=== PATIENT | male | born 1995 | race Hispanic/Latino ===

== ENCOUNTER 2020-08-27 09:01 | Emergency (ER) | payer OTHER, SELFPAY ==
[2020-08-27] MEDS ORDERED: METOCLOPRAMIDE 10 MG/2mL INJ ONE (09:37)
[2020-08-27] MEDS ORDERED: NA CHLORIDE 0.9% 1,000 ML ONE (09:37)
[2020-08-27] MEDS ORDERED: DIPHENHYDRAMINE 50 MG/ML VIAL ONE (09:37)
[2020-08-27] MEDS ORDERED: KETOROLAC 30 MG/ML INJ ONE (09:37)
--- NOTE | 2020-08-27 09:41 | RAD REPORT ---
EXAM DESCRIPTION: CT - Head Brain Wo Cont - 08/27/2020 9:34 am CLINICAL HISTORY: HEADACHE Intermittent headache COMPARISON: No comparisons TECHNIQUE: All CT scans are performed using dose optimization technique as appropriate and may inclu de automated exposure control or mA/KV adjustment according to patient size. FINDINGS: No intracranial hemorrhage, hydrocephalus or extra-axial fluid collection.No areas of brai n edema or evidence of midline shift. The paranasal sinuses and mastoids are clear. The calvarium is intact. IMPRESSION: No acute intracranial abnormality.
[2020-08-27 09:54] LABS: Absolute Lymphocytes (CBC) 1.9 K/uL (0.7-4.9); Basophils % 0.4 % (0-1.3); Hematocrit 45.2 % (39.6-49.0); Lymphocytes % 16.6 % (15.3-44.8); MPV 9.3 fL (7.6-11.3); RBC Red Blood Cell Count 5.07 M/uL (4.33-5.43)
[2020-08-27 09:56] LABS: BUN Blood Urea Nitrogen 13 mg/dL (7-18); Bicarbonate 29 mmol/L (21-32); Glucose Level 107 mg/dL (74-106); Potassium 4.3 mmol/L (3.5-5.1); Sodium Level 143 mmol/L (136-145)
--- NOTE | 2020-08-27 11:14 | ER ---
Nurse's Notes [facility] Name: Shawn Yates Age: 24 yrs Sex: Male : 1995 Arrival Date: 08/27/2020 Time: 09:04 Bed 8 Private MD: Diagnosis: Headache Presentation: 08/27 09:14 Chief complaint: Intermittent headache x 1 week, vomit x 1 today. Denies fever. hb Coronavirus screen: Client presents with at least one sign or symptom that may indicate coronavirus-19. Standard/surgical mask placed on the client. Provider contacted for isolation considerations. Ebola Screen: No symptoms or risks identified at this time. Initial Sepsis Screen: Does the patient meet any 2 criteria? No. Patient's initial sepsis screen is negative. Does the patient have a suspected source of infection? No. Patient's initial sepsis screen is negative. Risk Assessment: Do you want to hurt yourself or someone else? Patient reports no desire to harm self or others. Onset of symptoms was August 21, 2020. 09:14 Method Of Arrival: Ambulatory 09:14 Acuity: ALEXIS 3 hb Historical: - Allergies: 09:16 No Known Allergies; hb - Home Meds: 09:16 None [Active]; hb - PMHx: 09:16 None; hb - PSHx: 09:16 None; hb - Immunization history:: Adult Immunizations up to date. - Social history:: Smoking status: Patient denies any tobacco usage or history of. Screenin:25 Abuse screen: Denies threats or abuse. Denies injuries from another. Nutritional sv screening: No deficits noted. Tuberculosis screening: No symptoms or risk factors identified. Fall Risk None identified. Assessment: 09:25 General: Appears in no apparent distress. uncomfortable, well groomed, well developed, sv Behavior is calm, cooperative, appropriate for age. Pain: Complains of pain in right frontal area and right temporal area Pain currently is 8 out of 10 on a pain scale. Quality of pain is described as throbbing, Pain began a week ago Is continuous, Alleviated by nothing. Neuro: Level of Consciousness is awake, alert, obeys commands, Oriented to person, place, time, situation, Moves all extremities. Full function Gait is steady, Speech is normal. Respiratory: Airway is patent Respiratory effort is even, unlabored, Respiratory pattern is regular, symmetrical. Derm: Skin is intact, Skin is pink, warm \T\ dry. Musculoskeletal: Range of motion: intact in all extremities. Vital Signs: 09:14 Pulse 81; Resp 16; Temp 97.9(TE); Pulse Ox 99% on R/A; Weight 68.04 kg; Height 5 ft. 9 hb in. (175.26 cm); Pain 8/10; 10:00 BP 119 / 82; Pulse 64; Resp 16; Pulse Ox 100% on R/A; sv 09:14 Body Mass Index 22.15 (68.04 kg, 175.26 cm) hb [place] Coma Score: 11:24 Eye Response: spontaneous(4). Verbal Response: oriented(5). Motor Response: obeys kb commands(6). Total: 15. ED Course: 09:04 Patient arrived in ED. ds1 09:14 Arm band placed on. hb 09:16 Triage completed. hb 09:16 Denita Navarro, RN is Primary Nurse. hb 09:17 Hannah Corea FNP-C is PHCP. kb 09:17 Torey Damon MD is Attending Physician. kb 09:20 Primary Nurse role handed off by Denita Navarro RN sv 09:20 Janeen Ngo, JASIEL is Primary Nurse. sv 09:25 Patient has correct armband on for positive identification. Bed in low position. Call sv light in reach. Pulse ox on. NIBP on. Door closed. Head of bed elevated. 09:25 Inserted saline lock: 20 gauge in right antecubital area, using aseptic technique. sv Blood collected. Flushed right antecubital with 5 ml normal saline. 09:43 Basic Metabolic Panel Sent. sv 09:43 CBC with Diff Sent. sv 09:43 CT Head Brain wo Cont Sent. sv 12:12 No provider procedures requiring assistance completed. IV discontinued, intact, jl7 bleeding controlled, No redness/swelling at site. Pressure dressing applied. Administered Medications: 09:26 Drug: NS 0.9% 1000 ml Route: IV; Rate: 1000 ml; Site: right antecubital; sv 10:30 Follow up: Response: No adverse reaction; IV Status: Completed infusion; IV Intake: sv 1000ml 09: Drug: Benadryl 12.5 mg Route: IVP; Site: right antecubital; sv 10:00 Follow up: Response: No adverse reaction sv 09:28 Drug: TORadol - Ketorolac 15 mg Route: IVP; Site: right antecubital; sv 10:00 Follow up: Response: No adverse reaction sv 09:30 Drug: Reglan 10 mg Route: IVP; Site: right antecubital; sv 10:00 Follow up: Response: No adverse reaction sv 11:55 Drug: [place] (7.5 mg-325 mg) 1 tabs Route: PO; jl7 12:00 Follow up: Response: No adverse reaction; Medication administered at discharge. sv Intake: 10:30 IV: 1000ml; Total: 1000ml. sv Outcome: 11:13 Discharge ordered by . clay 12:12 Discharged to home ambulatory. jl7 12:12 Condition: stable 12:12 Discharge instructions given to patient, Instructed on discharge instructions, follow up and referral plans. Demonstrated understanding of instructions, follow-up care. 12:12 Patient left the ED. jl7 Signatures: Hannah Corea, PROCESS OWNER-C PROCESS OWNER-Janeen Babin, RN RN Uma Osorio ds1 Denita Navarro, JASIEL WEATHERS Chan Hawkins RN RN jl7
--- NOTE | 2020-08-27 11:14 | EDPHYS ---
Physician Documentation [facility] Name: Shawn Yates Age: 24 yrs Sex: Male : 1995 Arrival Date: 08/27/2020 Time: 09:04 Bed 8 Private MD: ED Physician Torey Damon HPI: 08/27 11:25 This 24 yrs old Male presents to ER via Ambulatory with complaints of Headache.kb 11:25 The patient complains of pain to the right restoration. The patient describes the headache kb as intermittent. Onset: The symptoms/episode began/occurred 1 week(s) ago. Associated signs and symptoms: Pertinent positives: nausea, Photophobia vomiting. Severity of symptoms: At its worst the pain was moderate, in the emergency department the pain is unchanged. Headache History: Denies prior headaches. The symptoms are alleviated by nothing. the symptoms are aggravated by nothing. The patient has not experienced similar symptoms in the past. The patient has not recently seen a physician. Historical: - Allergies: 09:16 No Known Allergies; hb - Home Meds: 09:16 None [Active]; hb - PMHx: 09:16 None; hb - PSHx: 09:16 None; hb - Immunization history:: Adult Immunizations up to date. - Social history:: Smoking status: Patient denies any tobacco usage or history of. ROS: 11:24 Constitutional: Negative for fever, chills, and weight loss, ENT: Negative for injury, kb pain, and discharge, Neck: Negative for injury, pain, and swelling, Cardiovascular: Negative for chest pain, palpitations, and edema, Respiratory: Negative for shortness of breath, cough, wheezing, and pleuritic chest pain, Abdomen/GI: Negative for abdominal pain, nausea, vomiting, diarrhea, and constipation, MS/Extremity: Negative for injury and deformity, Skin: Negative for injury, rash, and discoloration. 11:24 Neuro: Positive for headache. Exam: 11:24 Constitutional: This is a well developed, well nourished patient who is awake, alert, kb and in no acute distress. Head/Face: Normocephalic, atraumatic. ENT: Nares patent. No nasal discharge, no septal abnormalities noted. Tympanic membranes are normal and external auditory canals are clear. Oropharynx with no redness, swelling, or masses, exudates, or evidence of obstruction, uvula midline. Mucous membranes moist. Neck: Trachea midline, no thyromegaly or masses palpated, and no cervical lymphadenopathy. Supple, full range of motion without nuchal rigidity, or vertebral point tenderness. No Meningismus. Chest/axilla: Normal chest wall appearance and motion. Nontender with no deformity. No lesions are appreciated. Cardiovascular: Regular rate and rhythm with a normal S1 and S2. No gallops, murmurs, or rubs. Normal PMI, no JVD. No pulse deficits. Respiratory: Lungs have equal breath sounds bilaterally, clear to auscultation and percussion. No rales, rhonchi or wheezes noted. No increased work of breathing, no retractions or nasal flaring. Abdomen/GI: Soft, non-tender, with normal bowel sounds. No distension or tympany. No guarding or rebound. No evidence of tenderness throughout. Skin: Warm, dry with normal turgor. Normal color with no rashes, no lesions, and no evidence of cellulitis. MS/ Extremity: Pulses equal, no cyanosis. Neurovascular intact. Full, normal range of motion. Neuro: Awake and alert, GCS 15, oriented to person, place, time, and situation. Cranial nerves II-XII grossly intact. Motor strength 5/5 in all extremities. Sensory grossly intact. Cerebellar exam normal. Normal gait. Vital Signs: 09:14 Pulse 81; Resp 16; Temp 97.9(TE); Pulse Ox 99% on R/A; Weight 68.04 kg; Height 5 ft. 9 hb in. (175.26 cm); Pain 8/10; 10:00 BP 119 / 82; Pulse 64; Resp 16; Pulse Ox 100% on R/A; sv 09:14 Body Mass Index 22.15 (68.04 kg, 175.26 cm) hb [place] Coma Score: 11:24 Eye Response: spontaneous(4). Verbal Response: oriented(5). Motor Response: obeys kb commands(6). Total: 15. MDM: 09:17 Patient medically screened. kb 11:24 Data reviewed: vital signs, nurses notes. Data interpreted: Pulse oximetry: on room air kb is 100 %. Interpretation: normal. Counseling: I had a detailed discussion with the patient and/or guardian regarding: the historical points, exam findings, and any diagnostic results supporting the discharge/admit diagnosis, lab results, radiology results, the need for outpatient follow up, a neurologist, to return to the emergency department if symptoms worsen or persist or if there are any questions or concerns that arise at home. 12:15 ED course: Pt was ready to go home. Will follow up with neurology if symptoms continue. kb . 08/27 09:18 Order name: CBC with Diff kb 08/27 09:18 Order name: Basic Metabolic Panel kb 08/27 09:54 Order name: CBC with Automated Diff; Complete Time: 09:55 EDMS 08/27 09:56 Order name: Basic Metabolic Panel; Complete Time: 09:57 EDMS 08/27 09:18 Order name: CT Head Brain wo Cont kb 08/27 09:18 Order name: IV Start; Complete Time: 09:42 kb 08/27 09:41 Order name: CT; Complete Time: 09:52 EDMS Administered Medications: 09:26 Drug: NS 0.9% 1000 ml Route: IV; Rate: 1000 ml; Site: right antecubital; sv 10:30 Follow up: Response: No adverse reaction; IV Status: Completed infusion; IV Intake: sv 1000ml 09:26 Drug: Benadryl 12.5 mg Route: IVP; Site: right antecubital; sv 10:00 Follow up: Response: No adverse reaction sv 09:28 Drug: TORadol - Ketorolac 15 mg Route: IVP; Site: right antecubital; sv 10:00 Follow up: Response: No adverse reaction sv 09:30 Drug: Reglan 10 mg Route: IVP; Site: right antecubital; sv 10:00 Follow up: Response: No adverse reaction sv 11:55 Drug: [place] (7.5 mg-325 mg) 1 tabs Route: PO; jl7 12:00 Follow up: Response: No adverse reaction; Medication administered at discharge. sv Disposition: 14:34 Co-signature as Attending Physician, Torey Damon MD. rn Disposition: 08/27/20 11:13 Discharged to Home. Impression: Headache. - Condition is Stable. - Discharge Instructions: General Headache Without Cause, [id number]. - Medication Reconciliation Form, Thank You Letter, Antibiotic Education, Prescription Opioid Use form. - Follow up: Emergency Department; When: As needed; Reason: Worsening of condition. Follow up: Private Physician; When: 2 - 3 days; Reason: Recheck today's complaints, Continuance of care, Re-evaluation by your physician. Signatures: Dispatcher [employer] EDHannah Yost, SHAN SANCHES-Janeen Babin, RN RN Torey Schroeder MD MD rn Baxter, Heather, RN RN hb Leal, Jahala, RN RN jl7 Corrections: (The following items were deleted from the chart) 12:12 11:13 08/27/2020 11:13 Discharged to Home. Impression: Headache. Condition is Stable. jl7 Forms are Medication Reconciliation Form, Thank You Letter, Antibiotic Education, Prescription Opioid Use. Follow up: Emergency Department; When: As needed; Reason: Worsening of condition. Follow up: Private Physician; When: 2 - 3 days; Reason: Recheck today's complaints, Continuance of care, Re-evaluation by your physician. kb 12:15 12:09 ED course: Covid swab requested. kb kb
[2020-08-27] MEDS ORDERED: HYDROCODONE/APAP 7.5/325 MG TAB ONE (12:10)
[2020-08-27 12:20] VITALS: TEMP 97.9
[2020-08-27 12:22] VITALS: BP 119/82; O2SAT 100
== END 2020-08-27 12:12 | disposition home or self-care (01) ==
LOC: ER 09:01
DX: R51.9 Headache, unspecified (principal)
CPT/HCPCS: 36415; 70450; 80048; 85025; 96361; 96374; 96375; 99284; J1200; J2765; J7030